=== PATIENT | male | born 1995 | race Caucasian/White ===

== ENCOUNTER 2016-08-27 12:23 | Emergency (ER) | payer OTHER ==
--- NOTE | 2016-08-27 13:33 | ED Physician Documentation ---
Lower Extremity Injury - HISTORIAN Historian: patient, friend - [facility] Chief Complaint: Lower Extremity Injury Additional Information: RT FOOT PAIN ARCH AFTER 8 MILE MAY Onset: hours (4) Where: work Severity: moderate Context: denies: fall Associated Symptoms:: denies: tingling, numbness distally Modifying Factors:: pain on movement (AND WT BEARING-0EVEN AT REST) - ROS CONST: no problems. 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) - PAST HX Past History: none Allergies/Adverse Reactions: Allergies Allergy/AdvReac Type Severity Reaction Status Date / Time No Known Allergies Allergy Unverified 08/27/16 12:42 Home Medications: Ambulatory Orders Medication Instructions Recorded NK [NK] 08/27/16 - SOCIAL HX Smoking History: non-smoker Alcohol Use: none Drug Use: none - FAMILY HX Family History: no significant history - VITAL SIGNS Vital Signs: Vital Signs Temp Pulse Resp BP Pulse Ox 98.2 F 62 16 128/67 99 08/27/16 12:37 08/27/16 12:37 08/27/16 12:37 08/27/16 12:37 08/27/16 12:37 - REVIEWED ASSESSMENTS Nursing Assessment Reviewed: Yes Vitals Reviewed: Yes ED Results Lab/Radiology - Radiology Radiology Impressions: NO FRACTURE SEEN SOFT TISSUE SWELLING PRESENT - Orders Orders: ED Orders Category Date Time Status FOOT 3 VIEWS OR MORE [RAD] Stat Exams 08/27/16 Taken Lower Extremities Injury Phy - Physical Exam General Appearance: moderate distress Foot: N/A: other (SWELLING-PAIN) Ligaments: other (PALPATORY PAIN AND EXP STRESS) Gait: limited by pain Neuro/Vascular/Tendon: no vascular compromise Head/ENT: nml inspection Neck/Back: nml inspection Resp/CVS: chest non-tender, breath sounds nml, heart sounds nml, lungs clear, reg. 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
--- NOTE | 2016-08-27 20:47 | Diagnostic Imaging Report ---
JAY SPEAR [facility] [id number] [facility] [address] Report Submission Date: Aug 27, 2016 1:12:50 PM CDT Patient Study Name: ABDULAZIZ ANTONIO Date: Aug 27, 2016 12:49:16 PM CDT Modality Type: CR Gender: M Description: LOWER EXTREMITY : 89 Institution: [facility] Physician: JAY SPEAR Right foot - three views Clinical history: Pain in the foot following an eight mile may. Findings: Examination right foot in plantar, lateral and oblique views fails to demonstrate evidence of fracture, dislocation or other bone or joint pathology. Electronically signed on Aug 27, 2016 1:12:50 PM CDT by: Dakota KELLEY
[2016-08-27 21:03] VITALS: BP 126/75
== END 2016-08-27 13:45 | disposition home or self-care (01) ==
LOC: ED 12:23
DX: S93.601A Unspecified sprain of right foot, initial encounter (principal); W19.XXXA Unspecified fall, initial encounter; Y93.9 Activity, unspecified; Y99.9 Unspecified external cause status
CPT/HCPCS: 73630; 99283